=== PATIENT | female | born 1960 | race Caucasian/White ===

== ENCOUNTER 2020-10-10 04:44 | Day surgery (SDC) | payer OTHER ==
[2020-10-05 13:32] VITALS: BMI 28.3
[2020-10-10] MEDS ORDERED: ACETAMINOPHEN INJECTION 100 ML IVPB ONE (12:00)
[2020-10-10 14:56] VITALS: PULSE 72
[2020-10-10 16:46] VITALS: BP 130/69; TEMP 97.8
== END 2020-10-10 15:30 | disposition home or self-care (01) ==
LOC: JRADIR 04:44
PROVIDERS: ATTEND Internal Medicine Gastroenterology
PROC: 0FB03ZX Excision of Liver, Percutaneous Approach, Diagnostic (ICD-10-PCS; principal; 2020-10-10)
DX: K83.09 Other cholangitis (principal)
CPT/HCPCS: 76942-TC; 87899; 88305-TC; 88313-TC; J0131